=== PATIENT | male | born 1980 | race Caucasian/White ===

== ENCOUNTER 2018-07-21 22:24 | Emergency (ER) | payer OTHER ==
[~2018-07-21] VITALS: Ht 185.4 cm; Wt 96.2 kg
[2018-07-21 22:28] VITALS: BP 146/89
== END 2018-07-21 23:52 | disposition home or self-care (01) ==
LOC: ER 22:25
DX: R06.02 Shortness of breath (principal); R07.89 Other chest pain; F41.9 Anxiety disorder, unspecified
CPT/HCPCS: 71045; 93005; 99283